=== PATIENT | female | born 1940 | race Caucasian/White ===

== ENCOUNTER → 2016-06-19 | Outpatient (CLI) | payer MEDICARE, BC ==
--- NOTE | 2016-06-19 11:47 | RAD ---
Indication: Right heel pain for 6 weeks. Time of exam 11:28 AM 2 views of the calcaneus were obtained. There is a large plantar calcaneal spur. No definite fracture or stress reaction is seen. The subtalar joint is unremarkable. Impression: Calcaneal spur. No other abnormality is detected.
== END | disposition home or self-care (01) ==
LOC: DXRADRC 11:20
PROVIDERS: ATTEND Family Medicine
DX: M77.31 Calcaneal spur, right foot (principal)
CPT/HCPCS: 73650

== ENCOUNTER → 2016-10-30 | Outpatient (CLI) | payer MEDICARE, BC ==
--- NOTE | 2016-10-30 09:17 | RAD ---
Indication left knee pain for several weeks. No history of injury. AP oblique and lateral views of the left knee were obtained. There is a total knee replacement. No complication is seen associated with the orthopedic hardware. An acute bony finding is not seen. Moderate joint effusion is noted. IMPRESSION: Total knee prosthesis. No acute finding. Joint effusion.
== END | disposition home or self-care (01) ==
LOC: DXRADRC 07:42
PROVIDERS: ATTEND Physician Assistant Medical
DX: M25.562 Pain in left knee (principal); M25.462 Effusion, left knee; Z96.652 Presence of left artificial knee joint
CPT/HCPCS: 73562

== ENCOUNTER → 2017-09-09 | Outpatient (CLI) | payer MEDICARE, BC ==
--- NOTE | 2017-09-09 12:41 | RAD ---
EXAM: Dual energy x-ray absorptiometry (DEXA). HISTORY: Postmenopausal female presents for osteoporosis screening. COMPARISON: None. TECHNIQUE: Dual energy x-ray absorptiometry of the lumbar spine and right hip was performed. Calculation of bone mineral density based on standard deviations above or below the expected young adult normal value (T-score) was completed. FINDINGS: The average bone mineral density in the 1st through 4th lumbar vertebrae is 1.217 g/cmxcm, corresponding with a T-score of 0.3. The average total bone mineral density in the right hip is 0.767 g/cmxcm, corresponding with a T-score of -1.5. IMPRESSION: 1. Osteopenia measured at the right hip. 2. Normal bone mineral density measured at the lumbar spine. Note: Definitions established by the World Health Organization: 1. Normal: T-score is -1.0 or above. 2. Osteopenia: T-score is between -1.0 and -2.5 . 3. Osteoporosis: T-score is -2.5 or below. Electronically signed by: Zoë Rubio MD (09/09/2017 12:37 PM) [place] [id number]
== END | disposition home or self-care (01) ==
LOC: DXRAD 10:36
PROVIDERS: ATTEND Physician Assistant
DX: M85.88 Other specified disorders of bone density and structure, other site (principal); Z96.653 Presence of artificial knee joint, bilateral
CPT/HCPCS: 77080

== ENCOUNTER → 2018-10-23 | Outpatient (CLI) | payer MEDICARE, BC ==
--- NOTE | 2018-10-23 14:21 | RAD ---
EXAM: Thoracic spine, 3 views; lumbar spine, 3 views. HISTORY: Pain. COMPARISON: None. FINDINGS: Thoracic spine: 3 views of the thoracic spine are obtained. There is S-shaped thoracolumbar scoliosis, with levocurvature centered at the mid thoracic levels. There is a calcified granuloma within the right upper lobe. There is no significant listhesis. The vertebral bodies are normal in height and the disc spaces are preserved. There is endplate osteophytosis involving the cervical spine, primarily at C6-C7. Lumbar spine: 3 views of the lumbar spine are obtained. There is lumbar dextrocurvature centered at L1-L2. There is grade 1 anterolisthesis of L4 and L5. There is slight disc space narrowing at the lumbosacral junction. There is multilevel facet arthropathy. IMPRESSION: 1. No acute osseous finding. 2. S-shaped thoracolumbar scoliosis. 3. Grade 1 anterolisthesis of L4 on L5. 4. Multilevel degenerative change. Electronically signed by: Zoë Rubio MD (10/23/2018 2:18 PM) [id number]
== END | disposition home or self-care (01) ==
LOC: DXRAD 13:00
PROVIDERS: ATTEND Family Medicine
DX: M41.85 Other forms of scoliosis, thoracolumbar region (principal); M46.86 Other specified inflammatory spondylopathies, lumbar region; M48.061 Spinal stenosis, lumbar region without neurogenic claudication; M43.16 Spondylolisthesis, lumbar region; M47.816 Spondylosis without myelopathy or radiculopathy, lumbar region; J84.10 Pulmonary fibrosis, unspecified
CPT/HCPCS: 72072; 72100

== ENCOUNTER → 2020-08-26 | Outpatient (CLI) | payer MEDICARE, BC ==
[2020-08-26 09:38] LABS: BASO % 0 % (0-3); EOS # 0.2 x10^3/uL (0.0-0.7); EOS % 4 % (0-3); HEMATOCRIT 40.6 % (36.0-47.0); HEMOGLOBIN 13.5 g/dL (12.0-15.5); LYMPH # 1.7 x10^3/uL (1.0-4.8); LYMPH % 29 % (24-48); MEAN CORPUSCULAR HEMOGLOBIN 32 pg (25-35); MEAN CORPUSCULAR HGB CONC 33 g/dL (31-37); MEAN CORPUSCULAR VOLUME 95 fL (79-100); MONO # 0.6 x10^3/uL (0.0-1.1); MONO % 10 % (0-9); NEUT # 3.3 x10^3uL (1.8-7.7); NEUT % 57 % (31-73); PLATELET COUNT 290 x10^3/uL (140-400); RED BLOOD COUNT 4.26 x10^6/uL (3.50-5.40); RED CELL DISTRIBUTION WIDTH 14.5 % (11.5-14.5); WHITE BLOOD COUNT 5.8 x10^3/uL (4.0-11.0)
[2020-08-26 09:44] LABS: ALBUMIN 3.8 g/dL (3.4-5.0); ALBUMIN/GLOBULIN RATIO 1.1 (1.0-1.7); CALCIUM 9.6 mg/dL (8.5-10.1); CREATININE 1.1 mg/dL (0.6-1.0); GFR 47.9; POTASSIUM 4.2 mmol/L (3.5-5.1); TOTAL BILIRUBIN 0.3 mg/dL (0.2-1.0); TOTAL PROTEIN 7.2 g/dL (6.4-8.2)
== END ==
LOC: LAB 08:57
PROVIDERS: ATTEND Podiatrist
DX: Z01.818 Encounter for other preprocedural examination (principal); M21.611 Bunion of right foot
CPT/HCPCS: 36415; 80053; 85025

== ENCOUNTER → 2021-06-21 | Outpatient (CLI) | payer MEDICARE, BC ==
--- NOTE | 2021-06-21 10:44 | RAD ---
EXAM: DUAL ENERGY X-RAY ABSORPTIOMETRY (DEXA). HISTORY: Postmenopausal screening. FINDINGS: The lowest measured T-score is -1.9 in the right hip, based on a bone mineral density of 0. 726 g/cm^2. Refer to the worksheets for full detail. There has been a 5.3 percent decrease in density of the right hip and 4.5 percent increase in density of the lumbar spine compared to a study performed 09/09/2017. IMPRESSION: 1. Low bone mass. Bone mineral density yields a T-score between -1.0 and -2.5. Fracture risk is incre ased. 2. FRAX report: Not calculated. METHODOLOGY: Dual energy x-ray absorptiometry was performed to measure bone mineral density. The foll owing analysis is based on the 2019 Official Positions of the International Society for Clinical Dens itometry: Measurements of the hips and the average of L1-L4 are preferred. When the spine and/or hip cannot be feasibly measured or interpreted, or in the setting of hyperparathyroidism, distal radial bone minera l density may be measured. The lumbar spine T-score is based on the average bone mineral density of L1-L4. In the setting of art ifact or anatomic abnormality, some lumbar levels may be excluded, and the remaining levels used for calculation. A single lumbar level is not used for diagnosis, and if only a single level is available for assessment, another anatomic site will be used to assign a diagnosis. The hip T-score is based on the bone mineral density measurement of the femoral neck or total proxima l femur of either side, whichever is lowest. Bilateral mean values are not used for diagnosis. The forearm T-score is derived from 33% of the distal radius of the nondominant forearm. Electronically signed by: Zoë Rubio MD (06/21/2021 10:41 AM) [id number]
== END ==
LOC: DXRAD 09:53
PROVIDERS: ATTEND Family Medicine
DX: M85.89 Other specified disorders of bone density and structure, multiple sites (principal); Z78.0 Asymptomatic menopausal state
CPT/HCPCS: 77080